=== PATIENT | male | born 1955 | race Caucasian/White ===

== ENCOUNTER → 2017-10-24 11:00 | Outpatient (CLI) | payer OTHER, SELFPAY ==
[2017-10-24 11:58] LABS: Add Manual Diff / Slide Review NO; Basophils Percent Auto 0.5 % (0-2); Eosinophils Percent Auto 3.7 % (2-4); Hematocrit 40.9 % (41-53); Hemoglobin 12.7 g/dL (13.5-17.5); Lymphocytes Percent Auto 18.6 % (25-40); Mean Corpuscular HGB Conc 31.2 % (30-36); Mean Corpuscular Hemoglobin 20.7 PG (26-34); Mean Corpuscular Volume 66.4 fL (80-100); Monocytes Percent Auto 7.7 % (3-14); Neutrophils Absolute Auto 4000 /uL (3000-5900); Neutrophils Percent Auto 69.5 % (50-75); Platelet Count 158 X10^3/uL (150-400); Red Blood Cell Count 6.16 X10^6/uL (4.5-5.9); Red Cell Distribution Width 20.8 % (11.6-14.8); White Blood Cell Count 5.7 X10^3/uL (4.5-11.0)
[2017-10-24 12:51] LABS: Alanine Aminotransferase 40 IU/L (21-72); Albumin 4.4 g/dL (3.5-5.0); Albumin Globulin Ratio 1.8 (1.0-2.8); Alkaline Phosphatase 48 U/L (38-126); Aspartate Aminotransferase 30 IU/L (17-59); BUN Creatinine Ratio 21.7 (6-22); Bilirubin Total 1.2 mg/dL (0.2-1.3); Blood Urea Nitrogen 26 mg/dL (9-20); Calcium 9.1 mg/dL (8.4-10.2); Carbon Dioxide 25 mmol/L (22-32); Chloride 106 mmol/L (98-107); Creatine Kinase 59 U/L (55-170); Estimated Glomerular Filt Rate > 60.0 mL/min (>60); Globulin 2.5 g/dL (1.7-4.1); Glucose 118 mg/dL (80-110); HEMOLYSIS < 15 (0-50); Magnesium 1.8 mg/dL (1.6-2.3); Sodium 141 mmol/L (137-145); Total Protein 6.9 g/dL (6.3-8.2)
[2017-10-24 13:27] LABS: Anisocytosis 2+; Microcytosis 2+
[2017-10-24 13:28] LABS: Stomatocytes 1+; Target Cells 1+
[2017-10-24 13:29] LABS: Polychromasia 1+
== END ==
PROVIDERS: PCP Internal Medicine; Visit Provider Internal Medicine Advanced Heart Failure and Transplant Cardiology
DX: Z94.1 Heart transplant status (principal)
CPT/HCPCS: 36415; 80053; 82550; 83735; 85025

== ENCOUNTER 2019-03-03 16:12 | Emergency (ER) | payer OTHER, MEDICAID, SELFPAY ==
[2019-03-03 16:19] VITALS: BP 132/84; PULSE 82; RESP 12; TEMP 36.8; O2SAT 100
--- NOTE | 2019-03-03 16:25 | PC.NURSE ---
pt arrived POV. ambulatory. reports that he was moving a TV out of an odd angled area and heard a pop in his R bicep area. pronation of the R arm and palpation of the brachial area induces pain. +2 pulses. adequate sensation. 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 AAOx3. h/o heart transplant 4 yrs ago
--- NOTE | 2019-03-03 16:25 | ED.UPPEXIN ---
HPI - Extremity Injury (Upper) General Chief Complaint: Extremity Injury, Upper Stated Complaint: right arm pain, thinks he broke something Time Seen by Provider: 03/03/19 16:17 Source: patient Mode of arrival: Ambulatory Limitations: no limitations History of Present Illness HPI narrative: 63-year-old male here for evaluation of her right arm injury. He states that just prior to arrival he had his arm in a flexed position with his palm up trying to pull a heavy TV out of a confined space. He states that he felt a ?pop? and that right elbow area. Has had pain in that area since then. Some weakness with flexing his arm. No prior injuries to this area. Related Data Allergies Allergy/AdvReac Type Severity Reaction Status Date / Time No Known Drug Allergies Allergy Verified 03/03/19 16:21 Review of Systems Constitutional Constitutional: Denies fever(s) Cardiovascular Cardiovascular: Denies chest pain and Denies dyspnea Respiratory Respiratory: Denies dyspnea Musculoskeletal Musculoskeletal: Denies tingling Comments: Right elbow pain Integumentary/Breasts Skin/Breast: Denies lesions and Denies rash Neurologic Neurologic: Denies tingling Hematologic/Lymphatic Hematologic/Lymphatic: Denies easy bleeding and Denies easy bruising Patient History Medical/Surgical History Medical History Heart transplant recipient (Acute) Social History Smoking Status: Never smoker Family/Social History Social History Smoking Status: Never smoker alcohol intake frequency: 0-2 drinks per day Substance Use Type: does not use Exam Initial Vital Signs Initial Vital Signs: Vital Signs Temperature 98.3 F 03/03/19 16:19 Pulse Rate 82 03/03/19 16:19 Respiratory Rate 12 03/03/19 16:19 Blood Pressure 132/84 03/03/19 16:19 Pulse Oximetry 100 03/03/19 16:19 Const General: cooperative, healthy appearing and comfortable Cardio Rate: regular rate Rhythm: regular rhythm Pulses: radial pulses present on the right Skin Lesions: no lesions Rashes: no rashes Neuro Sensory Exam: no sensory deficits noted Extrem Other: Right shoulder is unremarkable, right wrist is unremarkable, right hand is unremarkable, patient does have pain with flexing of the right arm. He has a deficit felt at the distal biceps region. He is still able to flex his arm. Still able to pronate and supinate but does have some pain with supination. Triceps is unremarkable. Psych Appearance: grossly normal and well kempt Course Orders Ordered: ED Orders 03/03/19 16:24 XR humerus RT 2V Stat Vital Signs Vital signs: Vital Signs - 8 hr 03/03/19 16:19 Temperature 98.3 F Pulse Rate 82 Respiratory Rate 12 Blood Pressure 132/84 Pulse Oximetry 100 [facility] - Extremity Injury (Upper) Imaging Data Humerus x-ray: Radiologist's impression: [address] [address] XRay Report Signed Patient: Dann Hernandez CMR#: [id number] : 5Acct:[id number] Age/Sex: 63 / MDate of Service: 03/03/19 Loc: ED Accession Number: [id number] Procedure: XR humerus RT 2V Ordering Provider: Jair Longoria D.O. PROCEDURE: XR HUMERUS RT 2V INDICATIONS: Biceps tendon rupture distal TECHNIQUE: 2 views of the humerus were acquired. COMPARISON: None. FINDINGS: Bones: At the expected location of the biceps tendon insertion, there is a small avulsion fracture seen. No additional fractures are detected. No suspicious lytic or blastic lesions are seen. Soft tissues: No suspicious soft tissue calcifications. IMPRESSION: Apparent small avulsion fracture seen at the site of the expected biceps tendon insertion. If it would be helpful for clinical management decision making, please consider a dedicated MRI for further evaluation (assuming that there is no contraindication). Dictated by: Gregory Jarrett M.D. on 03/03/2019 at 15:41 Approved by: Gregory Jarrett M.D. on 03/03/2019 at 15:42 [facility] Narrative Medical decision making narrative: Patient is neurovascularly intact. His physical exam is consistent with a biceps injury potentially a biceps tendon versus a muscle tear. His x-ray does have a very small avulsion fracture from the area with a would expect the biceps tendon to insert. I did discuss the case with Dr. Roberson with Orthopedics who will be expecting his call tomorrow for follow-up. Given his cardiac history he will require clearance is before any surgical intervention. Patient was given a sling for comfort. He is given return precautions and follow-up instructions. Expressed understanding and agreement with plan. Discharge Plan Departure Patient Disposition: Home Clinical Impression: Biceps tendon rupture Qualifiers: Encounter type: initial encounter Laterality: right Qualified Code(s): S46.211A - Strain of muscle, fascia and tendon of other parts of biceps, right arm, initial encounter Activity Restrictions/Additional Instructions: Given your history and physical today I do have a strong suspicion that you have ruptured your biceps tendon on the right. The sling is for your comfort. I did discuss your case with Dr. Roberson who was on for Orthopedics today. She is expecting your call at the beginning of this week. You can call the [facility] at [phone]. Also contact your primary provider is you will most likely require specific clearance before any potential surgery. Referrals: Brent Abrams MD [Primary Care Provider] -
== END 2019-03-03 17:43 | disposition home or self-care (01) ==
PROVIDERS: Emergency Provider Emergency Medicine; PCP Internal Medicine
DX: S46.211A Strain of muscle, fascia and tendon of other parts of biceps, right arm, initial encounter (principal)
CPT/HCPCS: 73060; 99282; 99283

== ENCOUNTER → 2019-03-08 15:49 | Outpatient (CLI) | payer OTHER, MEDICAID, SELFPAY ==
[2019-03-08 16:12] LABS: Add Manual Diff / Slide Review NO; Basophils Absolute Auto 0 /uL (0-100); Basophils Percent Auto 0.2 % (0-2); Eosinophils Absolute Auto 100 /uL (0-450); Hematocrit 42.6 % (41-53); Hemoglobin 13.2 g/dL (13.5-17.5); Lymphocytes Absolute Auto 1100 /uL (1100-4500); Lymphocytes Percent Auto 12.3 % (25-40); Mean Corpuscular HGB Conc 31.1 % (30-36); Mean Corpuscular Hemoglobin 20.6 PG (26-34); Mean Corpuscular Volume 66.1 fL (80-100); Monocytes Absolute Auto 500 /uL (0-900); Monocytes Percent Auto 5.4 % (3-14); Neutrophils Absolute Auto 7400 /uL (1500-7000); Neutrophils Percent Auto 81.1 % (50-75); Platelet Count 198 X10^3/uL (150-400); Red Blood Cell Count 6.44 X10^6/uL (4.5-5.9); Red Cell Distribution Width 19.7 % (11.6-14.8); White Blood Cell Count 9.2 X10^3/uL (4.5-11.0)
[2019-03-08 16:33] LABS: Polychromasia 3+
[2019-03-08 16:34] LABS: Microcytosis 1+
[2019-03-08 16:43] LABS: Alanine Aminotransferase 31 IU/L (21-72); Albumin 4.6 g/dL (3.5-5.0); Albumin Globulin Ratio 1.8 (1.0-2.8); Alkaline Phosphatase 67 U/L (38-126); Aspartate Aminotransferase 28 IU/L (17-59); Bilirubin Total 1.1 mg/dL (0.2-1.3); Blood Urea Nitrogen 30 mg/dL (9-20); Calcium 9.7 mg/dL (8.4-10.2); Carbon Dioxide 26 mmol/L (22-32); Chloride 103 mmol/L (98-107); Estimated Glomerular Filt Rate > 60.0 mL/min (>60); Globulin 2.5 g/dL (1.7-4.1); Glucose 102 mg/dL (80-110); HEMOLYSIS < 15 (0-50); Potassium 4.9 mmol/L (3.4-5.1); Sodium 139 mmol/L (137-145); Total Protein 7.1 g/dL (6.3-8.2)
== END ==
PROVIDERS: Family Provider Internal Medicine; PCP Internal Medicine; Visit Provider Orthopaedic Surgery
DX: Z01.818 Encounter for other preprocedural examination (principal); Z01.812 Encounter for preprocedural laboratory examination; N39.9 Disorder of urinary system, unspecified; Z13.1 Encounter for screening for diabetes mellitus; R73.9 Hyperglycemia, unspecified
CPT/HCPCS: 36415; 80053; 85025; 93005

== ENCOUNTER → 2019-03-12 16:53 | Outpatient (CLI) | payer OTHER, MEDICAID, SELFPAY ==
--- NOTE | 2019-03-12 16:58 | DI.MRI.S_ITS ---
PROCEDURE: MR ELBOW RT WO CON INDICATIONS: Right elbow, bicep pain post lifting injury TECHNIQUE: Noncontrast coronal proton density fast spin echo and T2 fast spin echo with fat saturation, axial and sagittal T1 spin echo and T2 fast spin echo with fat saturation through the elbow. COMPARISON: None. FINDINGS: Image quality: Excellent. Lateral structures: The lateral ulnar collateral ligament and radial collateral ligament both appear intact. The overlying common extensor tendon also appears normal. Medial structures: The ulnar collateral ligament appears thickened with heterogeneous intrasubstance signal near its proximal insertion. The overlying common flexor tendon also appears thickened with mildly heterogeneous fluid signal suggestive of tendinosis and low-grade partial-thickness tear. The The ulnar nerve appears normal in size and signal within the cubital tunnel. Anterior structures: There is full-thickness rupture of distal biceps tendon at its proximal radial insertion with approximately 5 cm proximal retraction of torn tendon fibers with moderate amount of fluid surrounding torn distal biceps tendon. There is disruption of lacertus fibrosis. The brachialis appears intact as it insert onto the proximal ulna. No bicipitoradial bursal fluid. The median and radial neurovascular bundles appear normal; no focal muscle atrophy to suggest nerve impingement. Posterior structures: The conjoint triceps tendon from the long and lateral heads appears intact. The medial head of the triceps tendon also appears normal, with direct muscle insertion onto the olecranon. No olecranon bursal fluid. Bone and cartilage: No bone marrow contusions or fractures. No osteochondral injuries. IMPRESSION: 1. Full-thickness rupture of distal biceps tendon at its radial insertion with approximately 5 cm proximal retraction of torn tendon fibers and moderate amount of fluid surrounding distal biceps tendon. 2. Tendinosis and low-grade partial-thickness tear involving the common extensor tendon origin. Low-grade sprain involving proximal lateral collateral ligament. 3. No marrow edema. No fracture or dislocation. Dictated by: Fabricio Pitts M.D. on 03/13/2019 at 10:18 Approved by: Fabricio Pitts M.D. on 03/13/2019 at 10:24
== END ==
PROVIDERS: Family Provider Internal Medicine; PCP Internal Medicine; Visit Provider Orthopaedic Surgery
DX: S46.211A Strain of muscle, fascia and tendon of other parts of biceps, right arm, initial encounter (principal); M79.18 Myalgia, other site; X50.9XXA Other and unspecified overexertion or strenuous movements or postures, initial encounter
CPT/HCPCS: 73221

== ENCOUNTER 2019-03-15 13:21 | Day surgery (SDC) | payer OTHER, MEDICAID, SELFPAY ==
[2019-03-13 14:56] VITALS: BMI 35.4
[2019-03-15] VITALS (9 sets, daily range): BP systolic 126–147; BP diastolic 88–102; PULSE 75–87; RESP 14–21; TEMP 36.2–36.5; O2SAT 93–97; BMI 34.7
[2019-03-15] MEDS: LACTATED RINGERS 1,000 ML 42 ML IV (14:02)
--- NOTE | 2019-03-15 15:54 | PM.PREOP ---
Pre-operative Note Interval Note History & Physical reviewed/Exam performed by Physician: Yes Changes to H&P: No
--- NOTE | 2019-03-15 15:56 | P.OP_ITS ---
Operative Date/Time/Diagnoses Date of procedure: 03/15/19 Time of procedure: 16:10 Pre-op diagnosis: Right distal biceps rupture Post-op diagnosis: same Procedure & Clinicians Procedure: Right distal biceps repair Same procedure as scheduled: Yes Indications: This is a 63-year-old gentleman with a history of a heart transplant who is intermittently had to take steroids who had a TV fall and caught it noted the acute onset of severe right elbow pain deformity and elbow weakness. MRI scan confirmed a right distal biceps rupture. He is brought the operating room for repair as needed. Surgeon: Clau Roberson Polishing Pad Mounter: Bruce Swift Anesthesia Type: General and Peripheral nerve block Operative Notes Findings: Complete rupture of the distal biceps, adequate repair Closure Type: primary Specimen(s): none sent Prosthetic devices, grafts, tissues, transplants, or devices: [employer] endo- button Estimated Blood Loss (mL): 100 Blood products transfused: none Tourniquet time (min): 125 Procedure in detail: Patient was brought to the operating room. Time-out was performed. Patient was given preoperative antibiotics. He underwent the induction of a regional anesthesia. He was prepped and draped in standard sterile fashion with his right upper extremity. I applied a high arm tourniquet which was elevated for about 2 hours. Transverse incision was made distal to the antecubital crease by about 3-4 cm. Dissection was carried out through skin and subcutaneous tissues. The proximal extent of the biceps and the biceps tendon had retracted significantly proximally and was not identifiable until I extended the incision with lateral extension proximally. Dissection was then carried down in biceps tendon was carefully identified and meticulously mobilized. Attention was then directed to distally we I-dissected along the track working for the bicipital tuberosity. He had a very deep arm. We meticulously dissected down to bone and identified the radial tuberosity. There was no significant residual stump left on the radial tuberosity. There was some overlying soft tissue. Used a combination of multiple [place] and [employer] these to make sure that I had carefully identified the bicipital tuberosity in use rotation pronation and supination of the arm as well as some flexion to allow mobilization of the skin. Had a very deep forearm. Once the bicipital tuberosity had been definitively identified I dissected the soft tissue off of the bicipital tuberosity and then placed retractors around the bicipital tuberosity placed a K-wire bicortically through the tuberosity. An 8 mm Reamer was then used to ream unicortical a 1 cm. X-ray confirmed bicortical position of the K-wire. A whipstitch was then placed through the biceps tendon and was meticulously placed to the biceps tendon. I additionally our scope to the distal aspect of the biceps tendon to make it more bullet-shaped in order to allow its adequate fit into the tunnel. The sutures were woven through the Endobutton Endobutton was was then passed through the radius it flipped without difficulty. The sutures were then sequentially tightened down through the tunnel as the tendon was fed into the tunnel on the radial tuberosity. One of the sutures was then passed through the biceps tendon as it was exiting the tunnel and once again carefully tied. I attempted to place a additional supportive screw in the tunnel on but it really did not get an adequate polishing pad mounter there was clearly tendon in the tunnel but the screw did not get a bite and I decided that it likely would work its way out with repetitive motion and that it was not necessary for supplemental fixation. The sutures were also additionally sewn to the periosteum of the bicipital tuberosity. The wound was meticulously irrigated with normal saline. Marcaine was carefully injected. Tourniquet was deflated there was no significant bleeding. The wound was closed with interrupted Vicryl and skin yvonne. The wound was dressed sterilely. He was placed in a brace. The brace was locked a range of motion of 60-90. Complications: none Post-operative Condition: stable Disposition: same day surgery Plan for aftercare: Use brace to avoid excessive elbow motion okay to begin gentle pronation and supination no active or forceful elbow flexion. Start physical therapy, okay to rate do range of motion of 60? to full passive flexion. Keep brace on except when exercising with therapy.
[2019-03-15] MEDS: CEFAZOLIN 2 GM/100 ML FROZ.PIGGY IV (16:15)
--- NOTE | 2019-03-15 16:15 | SUR.PREOP ---
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 present in the room. See VS strips and rhythm strip taped to chart. Pt was dozing/snoring through most of the procedure. Aroused near the end of the procedure, oriented and asking appropriate questions. RN standby until take to the OR. VSS. States that his hand is beginning to get numb. Procedure started approx 1549, end 1604.
--- NOTE | 2019-03-15 16:47 | SUR.OPER ---
Supine on padded OR bed, head on pillow, right arm on arm table under control of surgeon, left arm secured on padded arm boards at <90 degrees abduction, legs uncrossed, safety belt at thigh, tape over blanket over lower legs.
[2019-03-15] MEDS: BUPIVACAINE 0.5% (PF) VIAL 30 ML INJ (16:54)
--- NOTE | 2019-03-15 19:40 | SUR.PHASEI ---
Post op PACU note: Patient arrive to PACU via stretcher. Drowsy but easily arousable. VSS, O2 Sat WNL on 2L/TELE TECH. Right arm in post op elbow brace. Neuro check--right arm block. Denies any pain or discomfort. Continue with post op plan of care.
--- NOTE | 2019-03-15 21:05 | SUR.PHASEII ---
Discharge note: PA repositioned right arm brace prior to discharge to home. Neuro checks WNL, Pain level 2/10 achy. Right arm still numb and heavy per patient. VSS, Discharge instructions given and explained to patient and spouse with good understanding. tolerating po without nausea. discharged to car via w/c.
== END 2019-03-15 20:37 ==
LOC: OR 13:25
PROVIDERS: Family Provider Internal Medicine; PCP Internal Medicine; Visit Provider Orthopaedic Surgery
PROC: (CPT 24341; principal; 2019-03-15 15:00)
DX: S46.211A Strain of muscle, fascia and tendon of other parts of biceps, right arm, initial encounter (principal); G89.18 Other acute postprocedural pain; Z94.1 Heart transplant status; W01.0XXA Fall on same level from slipping, tripping and stumbling without subsequent striking against object, initial encounter
CPT/HCPCS: 24342; 64447; 64450; J0690; J2704; J3010

== ENCOUNTER → 2019-04-01 16:16 | Outpatient (CLI) | payer OTHER, MEDICAID, SELFPAY ==
[2019-04-01 17:55] LABS: BUN Creatinine Ratio 24.2 (6-22); Blood Urea Nitrogen 29 mg/dL (9-20); Calcium 9.3 mg/dL (8.4-10.2); Carbon Dioxide 25 mmol/L (22-32); Chloride 106 mmol/L (98-107); Estimated Glomerular Filt Rate > 60.0 mL/min (>60); Glucose 94 mg/dL (80-110); HEMOLYSIS < 15 (0-50); Potassium 4.8 mmol/L (3.4-5.1); Sodium 138 mmol/L (137-145); Uric Acid 6.5 mg/dL (3.5-8.5)
== END ==
PROVIDERS: PCP Internal Medicine; Visit Provider Internal Medicine
DX: E79.0 Hyperuricemia without signs of inflammatory arthritis and tophaceous disease (principal); M1A.27 Drug-induced chronic gout, ankle and foot
CPT/HCPCS: 36415; 80048; 84550

== ENCOUNTER → 2019-07-02 10:37 | Outpatient (CLI) | payer MEDICARE, OTHER, SELFPAY ==
[2019-07-02 11:17] LABS: Add Manual Diff / Slide Review NO; Basophils Absolute Auto 0 /uL (0-100); Basophils Percent Auto 0.7 % (0-2); Eosinophils Absolute Auto 400 /uL (0-450); Eosinophils Percent Auto 6.4 % (2-4); Hematocrit 43.5 % (41-53); Hemoglobin 13.5 g/dL (13.5-17.5); Lymphocytes Absolute Auto 1200 /uL (1100-4500); Lymphocytes Percent Auto 21.9 % (25-40); Mean Corpuscular HGB Conc 31.1 % (30-36); Mean Corpuscular Hemoglobin 20.1 PG (26-34); Mean Corpuscular Volume 64.7 fL (80-100); Monocytes Absolute Auto 300 /uL (0-900); Monocytes Percent Auto 6.2 % (3-14); Neutrophils Absolute Auto 3500 /uL (1500-7000); Neutrophils Percent Auto 64.8 % (50-75); Platelet Count 148 X10^3/uL (150-400); Red Blood Cell Count 6.72 X10^6/uL (4.5-5.9); Red Cell Distribution Width 18.8 % (11.6-14.8); White Blood Cell Count 5.5 X10^3/uL (4.5-11.0)
[2019-07-02 11:33] LABS: Anisocytosis 2+; Poikilocytosis 1+; Target Cells 1+; Tear Drop Cells 1+
[2019-07-02 11:35] LABS: Alanine Aminotransferase 42 IU/L (<50); Albumin 4.7 g/dL (3.5-5.0); Albumin Globulin Ratio 1.6 (1.0-2.8); Alkaline Phosphatase 62 U/L (38-126); Aspartate Aminotransferase 44 IU/L (17-59); BUN Creatinine Ratio 20.7 (6-22); Bilirubin Total 1.2 mg/dL (0.2-1.3); Blood Urea Nitrogen 31 mg/dL (9-20); Carbon Dioxide 30 mmol/L (22-32); Chloride 105 mmol/L (98-107); Cholesterol 184 mg/dL (140-199); Creatine Kinase 58 U/L (55-170); Glucose 109 mg/dL (80-110); HDL Cholesterol 41 mg/dL (40-60); HEMOLYSIS < 15 (0-50); LDL Cholesterol Calculated 120 mg/dL (<100); Magnesium 1.9 mg/dL (1.6-2.3); Potassium 5.3 mmol/L (3.4-5.1); Sodium 145 mmol/L (137-145); Total Protein 7.7 g/dL (6.3-8.2); Triglycerides 115 mg/dL (35-150)
== END ==
PROVIDERS: PCP Internal Medicine; Referring Provider Internal Medicine Advanced Heart Failure and Transplant Cardiology; Visit Provider Internal Medicine Advanced Heart Failure and Transplant Cardiology
DX: Z94.1 Heart transplant status (principal)
CPT/HCPCS: 80053; 80061; 80197; 82550; 83735; 85025

== ENCOUNTER → 2019-07-10 08:38 | Outpatient (CLI) | payer MEDICARE, OTHER, SELFPAY ==
[2019-07-10 11:01] LABS: Add Manual Diff / Slide Review NO; Basophils Absolute Auto 0 /uL (0-100); Basophils Percent Auto 0.8 % (0-2); Eosinophils Absolute Auto 300 /uL (0-450); Eosinophils Percent Auto 6.2 % (2-4); Hematocrit 43.2 % (41-53); Hemoglobin 13.5 g/dL (13.5-17.5); Lymphocytes Absolute Auto 1400 /uL (1100-4500); Lymphocytes Percent Auto 26.6 % (25-40); Mean Corpuscular HGB Conc 31.2 % (30-36); Mean Corpuscular Hemoglobin 20.1 PG (26-34); Mean Corpuscular Volume 64.5 fL (80-100); Monocytes Absolute Auto 400 /uL (0-900); Monocytes Percent Auto 7.9 % (3-14); Neutrophils Absolute Auto 3100 /uL (1500-7000); Neutrophils Percent Auto 58.5 % (50-75); Platelet Count 132 X10^3/uL (150-400); Red Cell Distribution Width 19.5 % (11.6-14.8); White Blood Cell Count 5.4 X10^3/uL (4.5-11.0)
[2019-07-10 11:21] LABS: Anisocytosis 2+; Poikilocytosis 2+
[2019-07-10 11:22] LABS: BUN Creatinine Ratio 26.2 (6-22); Blood Urea Nitrogen 34 mg/dL (9-20); Calcium 9.4 mg/dL (8.4-10.2); Carbon Dioxide 24 mmol/L (22-32); Chloride 106 mmol/L (98-107); Estimated Glomerular Filt Rate 55.4 mL/min (>60); Glucose 102 mg/dL (80-110); HEMOLYSIS < 15 (0-50); Potassium 4.7 mmol/L (3.4-5.1); Sodium 140 mmol/L (137-145)
== END ==
PROVIDERS: PCP Internal Medicine; Referring Provider Internal Medicine Advanced Heart Failure and Transplant Cardiology; Visit Provider Internal Medicine Advanced Heart Failure and Transplant Cardiology
DX: Z94.1 Heart transplant status (principal)
CPT/HCPCS: 36415; 80048; 80195; 80197; 85025

== ENCOUNTER → 2019-07-23 08:39 | Outpatient (CLI) | payer MEDICARE, OTHER, SELFPAY ==
[2019-07-23 09:40] LABS: BUN Creatinine Ratio 23.3 (6-22); Blood Urea Nitrogen 28 mg/dL (9-20); Calcium 9.5 mg/dL (8.4-10.2); Carbon Dioxide 22 mmol/L (22-32); Chloride 106 mmol/L (98-107); Estimated Glomerular Filt Rate > 60.0 mL/min (>60); Glucose 111 mg/dL (80-110); HEMOLYSIS < 15 (0-50); Potassium 4.5 mmol/L (3.4-5.1); Sodium 140 mmol/L (137-145)
[2019-07-23 09:52] LABS: Add Manual Diff / Slide Review NO; Basophils Absolute Auto 100 /uL (0-100); Basophils Percent Auto 1.2 % (0-2); Eosinophils Absolute Auto 300 /uL (0-450); Eosinophils Percent Auto 4.7 % (2-4); Hematocrit 42.9 % (41-53); Lymphocytes Absolute Auto 1700 /uL (1100-4500); Lymphocytes Percent Auto 27.9 % (25-40); Mean Corpuscular HGB Conc 31.9 % (30-36); Mean Corpuscular Hemoglobin 20.4 PG (26-34); Monocytes Absolute Auto 400 /uL (0-900); Monocytes Percent Auto 6.8 % (3-14); Neutrophils Absolute Auto 3600 /uL (1500-7000); Neutrophils Percent Auto 59.4 % (50-75); Platelet Count 161 X10^3/uL (150-400); Red Cell Distribution Width 20.1 % (11.6-14.8)
[2019-07-23 09:53] LABS: Hemoglobin 13.7 g/dL (13.5-17.5); Red Blood Cell Count 6.71 X10^6/uL (4.5-5.9)
[2019-07-23 10:16] LABS: Microcytosis 1+
[2019-07-23 10:17] LABS: Anisocytosis 2+; Hypochromasia 2+
== END ==
PROVIDERS: PCP Internal Medicine; Referring Provider Internal Medicine Advanced Heart Failure and Transplant Cardiology; Visit Provider Internal Medicine Advanced Heart Failure and Transplant Cardiology
DX: Z94.1 Heart transplant status (principal)
CPT/HCPCS: 36415; 80048; 80195; 80197; 85025

== ENCOUNTER → 2019-07-30 08:34 | Outpatient (CLI) | payer MEDICARE, OTHER, SELFPAY ==
[2019-07-30 10:35] LABS: BUN Creatinine Ratio 21.6 (6-22); Blood Urea Nitrogen 27 mg/dL (9-20); Calcium 9.5 mg/dL (8.4-10.2); Carbon Dioxide 25 mmol/L (22-32); Chloride 106 mmol/L (98-107); Glucose 112 mg/dL (80-110); HEMOLYSIS < 15 (0-50); Potassium 4.7 mmol/L (3.4-5.1); Sodium 140 mmol/L (137-145)
== END ==
PROVIDERS: PCP Internal Medicine; Referring Provider Internal Medicine Advanced Heart Failure and Transplant Cardiology; Visit Provider Internal Medicine Advanced Heart Failure and Transplant Cardiology
DX: Z94.1 Heart transplant status (principal)
CPT/HCPCS: 36415; 80048; 80195; 80197

== ENCOUNTER → 2019-08-13 08:36 | Outpatient (CLI) | payer MEDICARE, OTHER, SELFPAY ==
[2019-08-13 09:52] LABS: BUN Creatinine Ratio 19.2 (6-22); Blood Urea Nitrogen 25 mg/dL (9-20); Calcium 9.5 mg/dL (8.4-10.2); Carbon Dioxide 26 mmol/L (22-32); Chloride 104 mmol/L (98-107); Estimated Glomerular Filt Rate 55.4 mL/min (>60); Glucose 127 mg/dL (80-110); HEMOLYSIS < 15 (0-50); Potassium 4.7 mmol/L (3.4-5.1); Sodium 137 mmol/L (137-145)
== END ==
PROVIDERS: PCP Internal Medicine; Referring Provider Internal Medicine Advanced Heart Failure and Transplant Cardiology; Visit Provider Internal Medicine Advanced Heart Failure and Transplant Cardiology
DX: Z94.1 Heart transplant status (principal)
CPT/HCPCS: 36415; 80048; 80195; 80197

== ENCOUNTER → 2019-11-22 09:23 | Outpatient (CLI) | payer MEDICARE, OTHER, SELFPAY ==
[2019-11-22 13:29] LABS: BUN Creatinine Ratio 20.6 (6-22); Blood Urea Nitrogen 26 mg/dL (9-20); Calcium 9.4 mg/dL (8.4-10.2); Carbon Dioxide 25 mmol/L (22-32); Chloride 105 mmol/L (98-107); Estimated Glomerular Filt Rate 57.4 mL/min (>60); Glucose 106 mg/dL (80-110); HEMOLYSIS 17 (0-50); Potassium 4.9 mmol/L (3.4-5.1); Sodium 138 mmol/L (137-145)
== END ==
PROVIDERS: PCP Internal Medicine; Referring Provider Internal Medicine Advanced Heart Failure and Transplant Cardiology; Visit Provider Internal Medicine Advanced Heart Failure and Transplant Cardiology
DX: Z94.1 Heart transplant status (principal)
CPT/HCPCS: 36415; 80048; 80195; 80197

== ENCOUNTER → 2019-12-17 09:37 | Outpatient (CLI) | payer MEDICARE, OTHER, SELFPAY ==
[2019-12-17 10:57] LABS: BUN Creatinine Ratio 18.7 (6-22); Blood Urea Nitrogen 25 mg/dL (9-20); Calcium 9.4 mg/dL (8.4-10.2); Carbon Dioxide 26 mmol/L (22-32); Chloride 106 mmol/L (98-107); Estimated Glomerular Filt Rate 53.5 mL/min (>60); Glucose 124 mg/dL (80-110); HEMOLYSIS < 15 (0-50); Potassium 4.6 mmol/L (3.4-5.1); Sodium 139 mmol/L (137-145)
[2020-01-21 11:49] LABS: Miscellaneous to LabCorp 3.1 ng/ml
== END ==
PROVIDERS: PCP Internal Medicine; Referring Provider Internal Medicine Advanced Heart Failure and Transplant Cardiology; Visit Provider Internal Medicine Advanced Heart Failure and Transplant Cardiology
DX: Z94.1 Heart transplant status (principal)
CPT/HCPCS: 36415; 80048; 80195; 80197

== ENCOUNTER → 2020-01-14 08:29 | Outpatient (CLI) | payer MEDICARE, OTHER, SELFPAY ==
[2020-01-14 10:24] LABS: BUN Creatinine Ratio 21.1 (6-22); Blood Urea Nitrogen 28 mg/dL (9-20); Calcium 9.3 mg/dL (8.4-10.2); Carbon Dioxide 31 mmol/L (22-32); Chloride 104 mmol/L (98-107); Glucose 144 mg/dL (80-110); HEMOLYSIS < 15 (0-50); Potassium 5.1 mmol/L (3.4-5.1); Sodium 139 mmol/L (137-145)
== END ==
PROVIDERS: PCP Internal Medicine; Referring Provider Internal Medicine Advanced Heart Failure and Transplant Cardiology; Visit Provider Internal Medicine Advanced Heart Failure and Transplant Cardiology
DX: Z94.1 Heart transplant status (principal)
CPT/HCPCS: 36415; 80048; 80195; 80197

== ENCOUNTER → 2020-06-30 10:07 | Outpatient (CLI) | payer MEDICARE, OTHER, SELFPAY ==
[2020-06-30 11:32] LABS: Add Manual Diff / Slide Review NO; Basophils Absolute Auto 100 /uL (0-100); Basophils Percent Auto 0.8 % (0-2); Eosinophils Absolute Auto 200 /uL (0-450); Eosinophils Percent Auto 2.4 % (2-4); Hematocrit 44.1 % (41-53); Hemoglobin 13.6 g/dL (13.5-17.5); Lymphocytes Absolute Auto 1300 /uL (1100-4500); Lymphocytes Percent Auto 18.9 % (25-40); Mean Corpuscular HGB Conc 30.8 % (30-36); Mean Corpuscular Hemoglobin 19.3 PG (26-34); Mean Corpuscular Volume 62.7 fL (80-100); Monocytes Absolute Auto 500 /uL (0-900); Monocytes Percent Auto 7.6 % (3-14); Neutrophils Absolute Auto 4700 /uL (1500-7000); Neutrophils Percent Auto 70.3 % (50-75); Platelet Count 133 X10^3/uL (150-400); Red Cell Distribution Width 19.9 % (11.6-14.8); White Blood Cell Count 6.6 X10^3/uL (4.5-11.0)
[2020-06-30 11:33] LABS: Red Blood Cell Count 7.03 X10^6/uL (4.5-5.9)
[2020-06-30 11:51] LABS: Anisocytosis 2+
[2020-06-30 12:15] LABS: Alanine Aminotransferase 47 IU/L (<50); Albumin 4.1 g/dL (3.5-5.0); Albumin Globulin Ratio 1.5 (1.0-2.8); Alkaline Phosphatase 92 U/L (38-126); Aspartate Aminotransferase 44 IU/L (17-59); BUN Creatinine Ratio 20.1 (6-22); Bilirubin Total 0.5 mg/dL (0.2-1.3); Blood Urea Nitrogen 28 mg/dL (9-20); Calcium 9.2 mg/dL (8.4-10.2); Carbon Dioxide 29 mmol/L (22-32); Chloride 105 mmol/L (98-107); Estimated Glomerular Filt Rate 51.1 mL/min (>60); Globulin 2.8 g/dL (1.7-4.1); Glucose 118 mg/dL (80-110); HEMOLYSIS < 15 (0-50); Magnesium 1.7 mg/dL (1.6-2.3); Potassium 4.7 mmol/L (3.4-5.1); Sodium 139 mmol/L (137-145); Total Protein 6.9 g/dL (6.3-8.2)
[2020-07-01 08:14] LABS: Sirolimus 6.9 ng/mL (3.0-20.0)
== END ==
PROVIDERS: PCP Internal Medicine; Referring Provider Internal Medicine Advanced Heart Failure and Transplant Cardiology; Visit Provider Internal Medicine Advanced Heart Failure and Transplant Cardiology
DX: Z94.1 Heart transplant status (principal)
CPT/HCPCS: 36415; 80053; 80195; 80197; 83735; 85025

== ENCOUNTER → 2021-03-10 08:11 | Outpatient (CLI) | payer MEDICARE, OTHER, SELFPAY ==
[2021-03-10 09:46] LABS: BUN Creatinine Ratio 20.7 (6-22); Blood Urea Nitrogen 29 mg/dL (9-20); Calcium 9.4 mg/dL (8.4-10.2); Carbon Dioxide 24 mmol/L (22-32); Chloride 105 mmol/L (98-107); Estimated Glomerular Filt Rate 50.7 mL/min (>60); Glucose 116 mg/dL (80-110); HEMOLYSIS < 15 (0-50); Potassium 4.7 mmol/L (3.4-5.1); Sodium 139 mmol/L (137-145)
[2021-03-11 08:57] LABS: Tacrolimus 3.6 ng/mL (2.0-20.0)
== END ==
PROVIDERS: PCP Internal Medicine; Referring Provider Internal Medicine Advanced Heart Failure and Transplant Cardiology; Visit Provider Internal Medicine Advanced Heart Failure and Transplant Cardiology
DX: Z94.1 Heart transplant status (principal)
CPT/HCPCS: 36415; 80048; 80195; 80197

== ENCOUNTER → 2021-04-26 08:06 | Outpatient (CLI) | payer MEDICARE, OTHER, SELFPAY ==
[2021-04-26 11:10] LABS: BUN Creatinine Ratio 22.4 (6-22); Blood Urea Nitrogen 32 mg/dL (9-20); Calcium 9.4 mg/dL (8.4-10.2); Carbon Dioxide 29 mmol/L (22-32); Chloride 103 mmol/L (98-107); Estimated Glomerular Filt Rate 49.5 mL/min (>60); Glucose 100 mg/dL (80-110); HEMOLYSIS < 15 (0-50); Potassium 4.6 mmol/L (3.4-5.1); Sodium 140 mmol/L (137-145)
[2021-04-27 09:45] LABS: Sirolimus 7.4 ng/mL (3.0-20.0)
== END ==
PROVIDERS: PCP Internal Medicine; Referring Provider Internal Medicine Advanced Heart Failure and Transplant Cardiology; Visit Provider Internal Medicine Advanced Heart Failure and Transplant Cardiology
DX: Z94.1 Heart transplant status (principal)
CPT/HCPCS: 36415; 80048; 80195; 80197

== ENCOUNTER → 2021-06-08 08:09 | Outpatient (CLI) | payer OTHER, MEDICAID, SELFPAY ==
[2021-06-08 11:18] LABS: BUN Creatinine Ratio 17.5 (6-22); Blood Urea Nitrogen 25 mg/dL (9-20); Calcium 9.2 mg/dL (8.4-10.2); Carbon Dioxide 27 mmol/L (22-32); Chloride 107 mmol/L (98-107); Estimated Glomerular Filt Rate 49.3 mL/min (>60); Glucose 98 mg/dL (80-110); HEMOLYSIS < 15 (0-50); Potassium 4.4 mmol/L (3.4-5.1); Sodium 139 mmol/L (137-145)
[2021-06-09 09:42] LABS: Sirolimus 4.4 ng/mL (3.0-20.0); Tacrolimus 4.1 ng/mL (2.0-20.0)
== END ==
PROVIDERS: PCP Internal Medicine; Referring Provider Internal Medicine Advanced Heart Failure and Transplant Cardiology; Visit Provider Internal Medicine Advanced Heart Failure and Transplant Cardiology
DX: Z94.1 Heart transplant status (principal)
CPT/HCPCS: 36415; 80048; 80195; 80197

== ENCOUNTER → 2021-06-15 08:05 | Outpatient (CLI) | payer OTHER, MEDICAID, SELFPAY ==
[2021-06-15 11:25] LABS: BUN Creatinine Ratio 21.8 (6-22); Blood Urea Nitrogen 29 mg/dL (9-20); Calcium 9.2 mg/dL (8.4-10.2); Carbon Dioxide 28 mmol/L (22-32); Chloride 107 mmol/L (98-107); Estimated Glomerular Filt Rate 53.6 mL/min (>60); Glucose 90 mg/dL (80-110); HEMOLYSIS < 15 (0-50); Potassium 4.5 mmol/L (3.4-5.1); Sodium 139 mmol/L (137-145)
[2021-06-16 10:13] LABS: Sirolimus 4.8 ng/mL (3.0-20.0); Tacrolimus 3.4 ng/mL (2.0-20.0)
== END ==
PROVIDERS: PCP Internal Medicine; Referring Provider Internal Medicine Advanced Heart Failure and Transplant Cardiology; Visit Provider Internal Medicine Advanced Heart Failure and Transplant Cardiology
DX: Z94.1 Heart transplant status (principal)
CPT/HCPCS: 36415; 80048; 80195; 80197

== ENCOUNTER → 2021-07-23 08:11 | Outpatient (CLI) | payer OTHER, MEDICAID, SELFPAY ==
[2021-07-23 09:07] LABS: BUN Creatinine Ratio 21.5 (6-22); Blood Urea Nitrogen 28 mg/dL (9-20); Calcium 8.9 mg/dL (8.4-10.2); Carbon Dioxide 26 mmol/L (22-32); Chloride 107 mmol/L (98-107); Estimated Glomerular Filt Rate 55.1 mL/min (>60); Glucose 104 mg/dL (80-110); HEMOLYSIS < 15 (0-50); Potassium 4.3 mmol/L (3.4-5.1); Sodium 139 mmol/L (137-145)
[2021-07-23 15:35] LABS: Tacrolimus 2.8 ng/mL (2.0-20.0)
[2021-07-24 10:16] LABS: Sirolimus 5.3 ng/mL (3.0-20.0)
== END ==
PROVIDERS: PCP Internal Medicine; Referring Provider Internal Medicine Advanced Heart Failure and Transplant Cardiology; Visit Provider Internal Medicine Advanced Heart Failure and Transplant Cardiology
DX: Z94.1 Heart transplant status (principal)
CPT/HCPCS: 36415; 80048; 80195; 80197

== ENCOUNTER → 2021-12-18 15:37 | Outpatient (CLI) | payer OTHER, MEDICAID, SELFPAY ==
[2021-12-19 14:52] LABS: HSV 2 IGG AB < 0.91 index (0.00-0.90); HSV1IGG > 62.20 index (0.00-0.90)
== END ==
PROVIDERS: PCP Internal Medicine; Referring Provider Nurse Practitioner Family; Visit Provider Nurse Practitioner Family
DX: B00.9 Herpesviral infection, unspecified (principal)
CPT/HCPCS: 36415; 86695; 86696

== ENCOUNTER → 2022-02-04 09:31 | Outpatient (CLI) | payer OTHER, MEDICAID, SELFPAY ==
[2022-02-04 10:44] LABS: Add Manual Diff / Slide Review NO; Basophils Absolute Auto 0 /uL (0-100); Basophils Percent Auto 0.4 % (0-2); Eosinophils Absolute Auto 200 /uL (0-450); Eosinophils Percent Auto 2.9 % (2-4); Hematocrit 37.4 % (41-53); Lymphocytes Absolute Auto 1400 /uL (1100-4500); Lymphocytes Percent Auto 22.8 % (25-40); Mean Corpuscular Hemoglobin 19.6 PG (26-34); Mean Corpuscular Volume 61.1 fL (80-100); Monocytes Absolute Auto 600 /uL (0-900); Monocytes Percent Auto 9.2 % (3-14); Neutrophils Absolute Auto 4100 /uL (1500-7000); Neutrophils Percent Auto 64.7 % (50-75); Platelet Count 144 X10^3/uL (150-400); Red Blood Cell Count 6.13 X10^6/uL (4.5-5.9); White Blood Cell Count 6.4 X10^3/uL (4.5-11.0)
[2022-02-04 11:02] LABS: Anisocytosis 2+; Hypochromasia 2+; Microcytosis 2+; Platelet Estimate Decreased on smear
[2022-02-04 11:35] LABS: Alanine Aminotransferase 28 IU/L (<50); Albumin Globulin Ratio 1.2 (1.0-2.8); Alkaline Phosphatase 70 U/L (38-126); Aspartate Aminotransferase 40 IU/L (17-59); BUN Creatinine Ratio 25.7 (6-22); Bilirubin Total 0.7 mg/dL (0.2-1.3); Blood Urea Nitrogen 38 mg/dL (9-20); Carbon Dioxide 24 mmol/L (22-32); Chloride 103 mmol/L (98-107); Creatine Kinase 73 U/L (55-170); Estimated Glomerular Filt Rate 52 mL/min (>60); Globulin 3.3 g/dL (1.7-4.1); Glucose 104 mg/dL (80-110); HEMOLYSIS 22 (0-50); Potassium 4.2 mmol/L (3.4-5.1); Sodium 139 mmol/L (137-145); Total Protein 7.3 g/dL (6.3-8.2)
[2022-02-05 11:16] LABS: Tacrolimus 3.2 ng/mL (2.0-20.0)
== END ==
PROVIDERS: PCP Internal Medicine; Referring Provider Internal Medicine Advanced Heart Failure and Transplant Cardiology; Visit Provider Internal Medicine Advanced Heart Failure and Transplant Cardiology
DX: Z94.1 Heart transplant status (principal)
CPT/HCPCS: 36415; 80053; 80195; 80197; 82550; 83735; 85025

== ENCOUNTER → 2022-05-09 09:13 | Outpatient (CLI) | payer OTHER, MEDICAID, SELFPAY ==
[2022-05-09 10:19] LABS: Appearance Urine UA CLEAR; Bilirubin Urine UA NEGATIVE (NEGATIVE); Color Urine UA YELLOW; Glucose Urine UA NEGATIVE (Negative); Ketones Urine UA NEGATIVE (NEGATIVE); Leukocyte Esterase Urine UA NEGATIVE (NEGATIVE); Nitrite Urine UA NEGATIVE (Negative); Occult Blood Urine UA 1+ (Negative); Protein Urine UA 3+ (Negative); Specific Gravity Urine UA >=1.030 (1.000-1.035); Urobilinogen Urine UA 0.2 E.U./dL (0.2)
[2022-05-09 10:20] LABS: Amorphous Sediment Urine 1+; Bacteria Urine None Seen; Culture Indicated Urine Cult Not Indicated; RBC Urine 1-5/HPF (0-5/HPF); Squamous Epithelial Cell Urine 1-5 /HPF (0-5/HPF); WBC Urine None Seen (0-5/HPF)
[2022-05-09 10:49] LABS: Add Manual Diff / Slide Review NO; Basophils Absolute Auto 100 /uL (0-100); Basophils Percent Auto 1.2 % (0-2); Eosinophils Absolute Auto 200 /uL (0-450); Hematocrit 39.6 % (41-53); Hemoglobin 12.1 g/dL (13.5-17.5); Lymphocytes Absolute Auto 1400 /uL (1100-4500); Lymphocytes Percent Auto 21.4 % (25-40); Mean Corpuscular HGB Conc 30.6 % (30-36); Mean Corpuscular Hemoglobin 18.7 PG (26-34); Mean Corpuscular Volume 61.2 fL (80-100); Monocytes Absolute Auto 600 /uL (0-900); Monocytes Percent Auto 8.6 % (3-14); Neutrophils Absolute Auto 4200 /uL (1500-7000); Neutrophils Percent Auto 65.8 % (50-75); Platelet Count 146 X10^3/uL (150-400); Red Blood Cell Count 6.47 X10^6/uL (4.5-5.9); Red Cell Distribution Width 21.8 % (11.6-14.8); White Blood Cell Count 6.4 X10^3/uL (4.5-11.0)
[2022-05-09 11:16] LABS: Alanine Aminotransferase 39 IU/L (<50); Albumin Globulin Ratio 1.5 (1.0-2.8); Alkaline Phosphatase 76 U/L (38-126); Aspartate Aminotransferase 33 IU/L (17-59); BUN Creatinine Ratio 17.1 (6-22); Bilirubin Total 0.8 mg/dL (0.2-1.3); Blood Urea Nitrogen 27 mg/dL (9-20); Calcium 8.9 mg/dL (8.4-10.2); Carbon Dioxide 26 mmol/L (22-32); Chloride 106 mmol/L (98-107); Creatine Kinase 69 U/L (55-170); Estimated Glomerular Filt Rate 48 mL/min (>60); Globulin 2.7 g/dL (1.7-4.1); Glucose 93 mg/dL (80-110); HEMOLYSIS < 15 (0-50); Magnesium 1.8 mg/dL (1.6-2.3); Potassium 4.4 mmol/L (3.4-5.1); Sodium 139 mmol/L (137-145); Total Protein 6.7 g/dL (6.3-8.2)
[2022-05-09 11:28] LABS: Anisocytosis 2+; Microcytosis 2+
[2022-05-09 11:29] LABS: Hypochromasia 1+; Target Cells 1+
[2022-05-10 09:47] LABS: Sirolimus 6.1 ng/mL (3.0-20.0); Tacrolimus 3.9 ng/mL (2.0-20.0)
== END ==
PROVIDERS: PCP Internal Medicine; Referring Provider Internal Medicine Advanced Heart Failure and Transplant Cardiology; Visit Provider Internal Medicine Advanced Heart Failure and Transplant Cardiology
DX: Z94.1 Heart transplant status (principal)
CPT/HCPCS: 36415; 80053; 80195; 80197; 81001; 82550; 83735; 85025

== ENCOUNTER → 2022-09-19 11:48 | Outpatient (CLI) | payer OTHER, MEDICAID, SELFPAY ==
[2022-09-19 12:36] LABS: Add Manual Diff / Slide Review NO; Basophils Absolute Auto 100 /uL (0-100); Basophils Percent Auto 1.5 % (0-2); Eosinophils Absolute Auto 100 /uL (0-450); Eosinophils Percent Auto 2.4 % (2-4); Hematocrit 37.4 % (41-53); Lymphocytes Absolute Auto 1300 /uL (1100-4500); Lymphocytes Percent Auto 21.1 % (25-40); Mean Corpuscular HGB Conc 32.1 % (30-36); Mean Corpuscular Volume 59.2 fL (80-100); Monocytes Absolute Auto 400 /uL (0-900); Monocytes Percent Auto 6.4 % (3-14); Neutrophils Absolute Auto 4300 /uL (1500-7000); Neutrophils Percent Auto 68.6 % (50-75); Platelet Count 143 X10^3/uL (150-400); Red Blood Cell Count 6.31 X10^6/uL (4.5-5.9); Red Cell Distribution Width 20.3 % (11.6-14.8); White Blood Cell Count 6.2 X10^3/uL (4.5-11.0)
[2022-09-19 12:52] LABS: BUN Creatinine Ratio 17.9 (6-22); Blood Urea Nitrogen 34 mg/dL (9-20); Calcium 8.8 mg/dL (8.4-10.2); Carbon Dioxide 26 mmol/L (22-32); Chloride 104 mmol/L (98-107); Estimated Glomerular Filt Rate 38 mL/min (>60); Glucose 111 mg/dL (80-110); HEMOLYSIS < 15 (0-50); Potassium 4.1 mmol/L (3.4-5.1); Sodium 139 mmol/L (137-145)
[2022-09-19 13:12] LABS: Microcytosis 3+
[2022-09-19 13:13] LABS: Target Cells 1+
[2022-09-23 13:12] LABS: Tacrolimus 3.8
[2022-09-25 20:02] LABS: Sirolimus 9.1
== END ==
PROVIDERS: PCP Internal Medicine; Referring Provider Internal Medicine Advanced Heart Failure and Transplant Cardiology; Visit Provider Internal Medicine Advanced Heart Failure and Transplant Cardiology
DX: Z94.1 Heart transplant status (principal)
CPT/HCPCS: 36415; 80048; 80195; 80197; 85025

== ENCOUNTER → 2022-10-10 09:20 | Outpatient (CLI) | payer OTHER, MEDICAID, SELFPAY ==
[2022-10-10 10:37] LABS: BUN Creatinine Ratio 20.7 (6-22); Blood Urea Nitrogen 40 mg/dL (9-20); Calcium 8.8 mg/dL (8.4-10.2); Carbon Dioxide 26 mmol/L (22-32); Chloride 103 mmol/L (98-107); Estimated Glomerular Filt Rate 37 mL/min (>60); Glucose 108 mg/dL (80-110); HEMOLYSIS < 15 (0-50); Potassium 4.2 mmol/L (3.4-5.1); Sodium 137 mmol/L (137-145)
[2022-10-13 10:20] LABS: Sirolimus 6.9
[2022-10-17 18:15] LABS: Tacrolimus 4.9
== END ==
PROVIDERS: PCP Internal Medicine; Referring Provider Internal Medicine Advanced Heart Failure and Transplant Cardiology; Visit Provider Internal Medicine Advanced Heart Failure and Transplant Cardiology
DX: Z94.1 Heart transplant status (principal)
CPT/HCPCS: 36415; 80048; 80195; 80197

== ENCOUNTER → 2023-02-04 11:26 | Outpatient (CLI) | payer OTHER, MEDICAID, SELFPAY ==
[2023-02-04 12:21] LABS: BUN Creatinine Ratio 21.7 (6-22); Blood Urea Nitrogen 38 mg/dL (9-20); Calcium 9.6 mg/dL (8.4-10.2); Carbon Dioxide 25 mmol/L (22-32); Chloride 103 mmol/L (98-107); Estimated Glomerular Filt Rate 42 mL/min (>60); Glucose 98 mg/dL (80-110); HEMOLYSIS < 15 (0-50); Potassium 4.9 mmol/L (3.4-5.1); Sodium 138 mmol/L (137-145)
[2023-02-08 11:47] LABS: Tacrolimus 5.4
== END ==
PROVIDERS: PCP Internal Medicine; Referring Provider Internal Medicine Advanced Heart Failure and Transplant Cardiology; Visit Provider Internal Medicine Advanced Heart Failure and Transplant Cardiology
DX: Z94.1 Heart transplant status (principal)
CPT/HCPCS: 36415; 80048; 80197

== ENCOUNTER 2024-04-13 15:12 | Emergency (ER) | payer OTHER, MEDICAID, SELFPAY ==
[2024-04-13] VITALS (75 sets, daily range): BP systolic 115–171; BP diastolic 70–119; PULSE 121–143; RESP 15–36; TEMP 36.6; O2SAT 93–98; BMI 36.0
--- NOTE | 2024-04-13 15:20 | DI.RAD.S_ITS ---
PROCEDURE: XR CHEST 1V INDICATIONS: chest pain TECHNIQUE: One view of the chest was acquired. COMPARISON: [facility], CR, XR CHEST 1 VIEW, 12/15/2021, 12:20. FINDINGS: Surgical changes and devices: Sternotomy wires are seen. Lungs and pleura: On this semiupright portable chest examination, no large pneumothorax or large pleural effusions are seen. No focal infiltrates are seen. Low lung volumes are noted. This causes a crowded appearance to the lung markings and limits evaluation. Mediastinum: Mediastinal contours appear normal. Heart size is moderately enlarged. Bones and chest wall: No suspicious bony lesions. Age-appropriate bony degenerative changes are seen. Overlying soft tissues appear unremarkable. IMPRESSION: Moderate cardiomegaly. Low lung volumes. Postoperative and degenerative changes are seen. Dictated by: Gregory Jarrett M.D. on 04/13/2024 at 14:58 Approved by: Gregory Jarrett M.D. on 04/13/2024 at 14:59
--- NOTE | 2024-04-13 15:26 | EKG_ITS ---
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
[2024-04-13 15:40] LABS: Basophils Absolute Auto 100 /uL (0-100); Basophils Percent Auto 0.6 % (0-2); Eosinophils Absolute Auto 300 /uL (0-450); Eosinophils Percent Auto 3.5 % (2-4); Lymphocytes Absolute Auto 2900 /uL (1100-4500); Lymphocytes Percent Auto 29.8 % (25-40); Mean Corpuscular Hemoglobin 20.7 PG (26-34); Mean Corpuscular Volume 66.6 fL (80-100); Monocytes Absolute Auto 600 /uL (0-900); Monocytes Percent Auto 6.2 % (3-14); Neutrophils Absolute Auto 5900 /uL (1500-7000); Neutrophils Percent Auto 59.9 % (50-75); Platelet Count 201 X10^3/uL (150-400); Red Blood Cell Count 6.76 X10^6/uL (4.5-5.9); Red Cell Distribution Width 19.1 % (11.6-14.8); White Blood Cell Count 9.8 X10^3/uL (4.5-11.0)
--- NOTE | 2024-04-13 15:43 | PC.NURSE ---
hx of heart transplant 2015
[2024-04-13 15:44] LABS: Prothrombin Time 10.9 SECONDS (9.4-12.5)
[2024-04-13 15:47] LABS: PTT Partial Thromboplastin Tim 36 SECONDS (25.1-36.5)
[2024-04-13] MEDS: ASPIRIN 81 MG CHEW TAB 324 MG PO (15:47)
[2024-04-13 15:49] LABS: Alanine Aminotransferase 30 IU/L (<50); Albumin 4.4 g/dL (3.5-5.0); Albumin Globulin Ratio 1.5 (1.0-2.8); Alkaline Phosphatase 69 U/L (38-126); Aspartate Aminotransferase 36 IU/L (17-59); Bilirubin Total 0.8 mg/dL (0.2-1.3); Blood Urea Nitrogen 49 mg/dL (9-20); Calcium 9.5 mg/dL (8.4-10.2); Carbon Dioxide 29 mmol/L (22-32); Chloride 103 mmol/L (98-107); Creatine Kinase 46 U/L (55-170); Estimated Glomerular Filt Rate 33 mL/min (>60); Globulin 2.9 g/dL (1.7-4.1); Glucose 94 mg/dL (80-110); HEMOLYSIS < 15 (0-50); Lipase 50 U/L (23-300); Potassium 4.8 mmol/L (3.4-5.1); Sodium 138 mmol/L (137-145); Total Protein 7.3 g/dL (6.3-8.2)
[2024-04-13 15:56] LABS: Add Manual Diff / Slide Review SLIDE REVIEW
[2024-04-13 16:01] LABS: NT-proBNP (BNP-Adult 18+) 4720 pg/mL (<125); Troponin I < 0.012 ng/mL (0.01-0.034)
--- NOTE | 2024-04-13 16:05 | ED_ITS ---
HPI - Arrhythmia/Palpitations <Ed Jackson DO - Last Filed: 04/13/24 16:38> General Chief Complaint: Arrhythmia/Palpitations Stated Complaint: sent by [facility], heart rate 135bpm Time Seen by Provider: 04/13/24 16:03 Source: patient Mode of arrival: Ambulatory History of Present Illness HPI narrative: patient is a 68-year-old male with a history of cardiac transplant in 2014 on tacrolimus. States he does take diltiazem normally. Comes into the ED complaining of palpitations lightheadedness started around noon, states that this has since resolved however patient did go to urgent care and noted to be tachycardic therefore patient instructed to come into the ED for further evaluation and treatment. He states that he did have cardiac transplant performed due to history of aortic bicuspid valve. Has been compliant with all of his medications, stating that he is still having intermittent palpitations but no actual chest pain shortness of breath. Does follow with Dr. Ed Carney ( Cardiology at [facility]). currently not complaining of any other symptoms at this time he is concerned that he is in the process of having a rejection of his transplant but has been compliant with all of his medications as prescribed. He states that he did have a echo and stress test that were normal in November of 2023. Related Data Home Medications Medication Instructions Recorded Confirmed dapsone 100 mg tablet 50 mg PO DAILY 03/14/19 12/18/21 diltiazem HCl 30 mg tablet 15 mg PO BID 03/14/19 12/18/21 mycophenolate mofetil 250 mg 250 mg PO BID 03/14/19 12/18/21 capsule tacrolimus 1 mg capsule, 2 mg PO Q12H 03/14/19 12/18/21 immediate-release allopurinol 100 mg tablet 100 mg PO DAILY 03/15/19 12/18/21 folic acid 1 mg tablet 1 mg PO DAILY 03/15/19 12/18/21 prednisone 5 mg tablet 5 mg PO DAILY 03/15/19 12/18/21 Previous Rx's Medication Instructions Recorded ganciclovir 0.15 % eye gel 1 drp EYE-RIGHT TID #5 grams 12/18/21 Allergies Allergy/AdvReac Type Severity Reaction Status Date / Time No Known Drug Allergies Allergy Verified 04/13/24 15:20 Review of Systems <DO Hannah Garcia Last Filed: 04/13/24 16:38> Review of Systems Narrative: General: Denies fever, chills, weight loss HEENT: Denies headache, eye drainage, eye irritation, head trauma, sore throat, voice change Cardiovascular: positive palpitations, tachycardia denies chest pain, shortness of breath Respiratory: Denies any shortness of breath, cough, wheeze, stridor GI/: Denies any abdominal pain, nausea, vomiting, diarrhea, bright red blood per rectum, melanotic stools, urinary frequency, urinary retention, dysuria, hematuria MSK: Denies any joint pain, muscle pains, swelling Skin: Denies any rashes, lesions, discoloration Neuro: Denies any headache, lightheadedness, dizziness, fainting, weakness Psych: Denies SI/HI Patient History <Ed Jackson DO - Last Filed: 04/13/24 16:38> Medical History (Updated 04/13/24 @ 20:09 by Shanon Coombs MD) Unspecified transient cerebral ischemia (08/28/14) ACC/AHA stage D heart failure (08/29/14) Severe aortic stenosis Nonischemic cardiomyopathy Microcytic anemia HTN (hypertension) CKD (chronic kidney disease), stage III Heart transplant recipient (12/04/14) Surgical History (Updated 04/13/24 @ 20:09 by Shanon Coombs MD) History of left ventricular assist device (LVAD) (08/29/14) History of right ventricular assist device (RVAD) (08/29/14) S/P TAVR (transcatheter aortic valve replacement) (08/21/14) Social History household members: spouse and children Smoking Status: Never smoker Smoking Status: Never smoker alcohol intake frequency: 0-2 drinks per day Substance Use Type: does not use Exam <Ed Jackson DO - Last Filed: 04/13/24 16:38> Narrative Exam Narrative: General: Cooperative, comfortable, well-developed, not in acute distress HEENT: Normocephalic, atraumatic, PERRLA, normal sclera, eyelids normal, Neck: Active full range of motion, atraumatic Chest: Normal to inspection, negative crepitus, no overlying erythema ecchymosis Respiratory: Normal respiratory effort, not in acute respiratory distress, clear to auscultation bilaterally negative cough, wheeze, tachypnea, rhonchi, rales Cardiology: tachycardic negative gallop, murmur, rubs GI/: Normal to inspection, soft, nonrigid, no tenderness to palpation, exam deferred MSK: Full range of active range of motion of all 4 extremities, atraumatic Skin: No rashes lesions noted Neuro: Alert awake oriented x3, moves all 4 extremities spontaneously, cranial nerves intact, able to answer all questions appropriately follows commands appropriately Psych: Cooperative, negative suicidal or homicidal ideations Initial Vital Signs Initial Vital Signs: Vital Signs Temperature 98 F 04/13/24 15:15 Pulse Rate 135 H 04/13/24 15:15 Respiratory Rate 22 04/13/24 15:15 Blood Pressure 160/103 H 04/13/24 15:15 Pulse Oximetry 98 04/13/24 15:15 Oxygen Delivery Method Room Air 04/13/24 15:15 <Shanon Coombs MD - Last Filed: 04/13/24 23:58> Initial Vital Signs Initial Vital Signs: Vital Signs Temperature 98 F 04/13/24 15:15 Pulse Rate 135 H 04/13/24 15:15 Respiratory Rate 22 04/13/24 15:15 Blood Pressure 160/103 H 04/13/24 15:15 Pulse Oximetry 98 04/13/24 15:15 Oxygen Delivery Method Room Air 04/13/24 15:15 Course <Ed Jackson DO - Last Filed: 04/13/24 16:38> Orders Ordered: ED Orders 04/13/24 15:20 XR chest 1V Stat EKG-12 Lead Stat 04/13/24 15:27 Complete Blood Count AUTO DIFF Stat Comprehensive Metabolic Panel Stat Lipase Stat Magnesium Stat NT-proBNP (BNP-Adult 18+) Stat PTT Partial Thromboplastin [place] Stat Prothrombin Time INR Stat Troponin & CK Cardiac Panel Stat 04/13/24 19:12 Urine Microscopic Stat Discontinued Medications Aspirin (Aspirin 81 Mg Chew Tab) 324 mg PO NOW ONE Stop: 04/13/24 15:21 Last Admin: 04/13/24 15:47 Dose: 324 mg Documented By: CHRISS Magnesium Sulfate (Magnesium Sulfate) 2 gm in 50 mls @ 150 mls/hr IV NOW ONE Stop: 04/13/24 16:22 Last Infusion: 04/13/24 16:43 Dose: Infused Documented By: CHRISS Co-signed By: KAMRYN Admin: 04/13/24 16:23 Dose: 150 mls/hr Documented By: CHRISS Co-signed By: KAMRYN Metoprolol Tartrate (Metoprolol Tartrate 5 Mg/5 Ml Inj) 5 mg IV Q5M AGUSTIN Stop: 04/13/24 18:26 Last Admin: 04/13/24 18:34 Dose: Not Given Documented By: Admin: 04/13/24 18:29 Dose: 5 mg Documented By: Admin: 04/13/24 18:24 Dose: 5 mg Documented By: CHRISS Vital Signs Vital signs: Vital Signs - 8 hr 04/13/24 16:00 04/13/24 16:00 04/13/24 16:05 Pulse Rate 143 H 138 H Respiratory Rate 16 Blood Pressure 136/96 H Pulse Oximetry 95 95 Oxygen Delivery Method Room Air 04/13/24 16:10 04/13/24 16:11 04/13/24 16:11 Pulse Rate 137 H 137 H Respiratory Rate 19 16 Blood Pressure 161/108 H Pulse Oximetry 96 97 Oxygen Delivery Method 04/13/24 16:15 04/13/24 16:20 04/13/24 16:20 Pulse Rate 137 H 136 H Respiratory Rate 18 17 Blood Pressure 166/92 H Pulse Oximetry 96 96 Oxygen Delivery Method Room Air 04/13/24 16:25 04/13/24 16:30 04/13/24 16:30 Pulse Rate 137 H 137 H Respiratory Rate 15 19 Blood Pressure 152/96 H Pulse Oximetry 96 Oxygen Delivery Method 04/13/24 16:35 04/13/24 16:40 04/13/24 16:40 Pulse Rate 135 H 134 H Respiratory Rate 20 20 Blood Pressure 146/92 H Pulse Oximetry 96 95 Oxygen Delivery Method 04/13/24 16:45 04/13/24 16:50 04/13/24 16:50 Pulse Rate 134 H 135 H Respiratory Rate 25 H Blood Pressure 152/83 H Pulse Oximetry 94 Oxygen Delivery Method Room Air 04/13/24 16:55 04/13/24 17:00 04/13/24 17:00 Pulse Rate 135 H 136 H Respiratory Rate 18 18 Blood Pressure 155/84 H Pulse Oximetry 93 94 Oxygen Delivery Method 04/13/24 17:05 04/13/24 17:10 04/13/24 17:10 Pulse Rate 136 H 137 H Respiratory Rate 22 18 Blood Pressure 145/77 H Pulse Oximetry 95 94 Oxygen Delivery Method 04/13/24 17:15 04/13/24 17:20 04/13/24 17:20 Pulse Rate 137 H 137 H Respiratory Rate 16 20 Blood Pressure 129/74 Pulse Oximetry 94 Oxygen Delivery Method 04/13/24 17:25 04/13/24 17:30 04/13/24 17:31 Pulse Rate 135 H 136 H Respiratory Rate 15 17 Blood Pressure 145/82 H Pulse Oximetry Oxygen Delivery Method 04/13/24 17:31 04/13/24 17:35 04/13/24 17:40 Pulse Rate 136 H 136 H Respiratory Rate 17 16 Blood Pressure 124/77 Pulse Oximetry 95 93 Oxygen Delivery Method Room Air 04/13/24 17:40 04/13/24 17:45 04/13/24 17:50 Pulse Rate 135 H 135 H Respiratory Rate 21 15 Blood Pressure 129/89 Pulse Oximetry 94 Oxygen Delivery Method Room Air 04/13/24 17:50 04/13/24 17:55 04/13/24 18:00 Pulse Rate 135 H 135 H Respiratory Rate 20 23 Blood Pressure 131/87 Pulse Oximetry 93 94 Oxygen Delivery Method 04/13/24 18:00 04/13/24 18:05 04/13/24 18:10 Pulse Rate 135 H 136 H Respiratory Rate 22 21 Blood Pressure 124/89 Pulse Oximetry 94 94 Oxygen Delivery Method 04/13/24 18:10 04/13/24 18:15 04/13/24 18:20 Pulse Rate 135 H 135 H Respiratory Rate 17 26 H Blood Pressure 164/99 H Pulse Oximetry 94 94 Oxygen Delivery Method 04/13/24 18:20 04/13/24 18:25 04/13/24 18:30 Pulse Rate 133 H 134 H Respiratory Rate 28 H 21 Blood Pressure 139/96 H Pulse Oximetry 96 95 Oxygen Delivery Method 04/13/24 18:30 04/13/24 18:35 04/13/24 18:40 Pulse Rate 133 H 130 H Respiratory Rate 22 25 H Blood Pressure 141/82 H Pulse Oximetry 95 96 Oxygen Delivery Method 04/13/24 18:40 04/13/24 18:45 04/13/24 18:50 Pulse Rate 130 H 130 H 131 H Respiratory Rate 26 H 20 20 Blood Pressure Pulse Oximetry 95 95 95 Oxygen Delivery Method 04/13/24 18:50 04/13/24 18:55 04/13/24 19:00 Pulse Rate 126 H 132 H Respiratory Rate 24 24 Blood Pressure 126/92 H Pulse Oximetry 94 95 Oxygen Delivery Method 04/13/24 19:01 04/13/24 19:01 04/13/24 19:05 Pulse Rate 133 H 132 H Respiratory Rate 19 28 H Blood Pressure 115/91 H Pulse Oximetry 94 96 Oxygen Delivery Method 04/13/24 19:10 04/13/24 19:11 04/13/24 19:11 Pulse Rate 131 H 130 H Respiratory Rate 29 H 30 H Blood Pressure 155/94 H Pulse Oximetry 95 95 Oxygen Delivery Method 04/13/24 19:15 04/13/24 19:20 04/13/24 19:21 Pulse Rate 134 H 128 H Respiratory Rate 22 18 Blood Pressure 132/92 H Pulse Oximetry 95 94 Oxygen Delivery Method 04/13/24 19:21 04/13/24 19:25 04/13/24 19:42 Pulse Rate 131 H 127 H 136 H Respiratory Rate 22 24 16 Blood Pressure Pulse Oximetry 94 95 Oxygen Delivery Method Room Air Room Air 04/13/24 19:44 04/13/24 19:44 04/13/24 19:45 Pulse Rate 134 H 135 H Respiratory Rate 19 16 Blood Pressure 131/93 H Pulse Oximetry 94 95 Oxygen Delivery Method 04/13/24 19:50 04/13/24 19:50 04/13/24 19:55 Pulse Rate 134 H 130 H Respiratory Rate 27 H Blood Pressure 131/81 Pulse Oximetry 94 93 Oxygen Delivery Method 04/13/24 20:00 04/13/24 20:00 04/13/24 20:05 Pulse Rate 127 H 125 H Respiratory Rate 22 24 Blood Pressure 126/70 Pulse Oximetry 94 94 Oxygen Delivery Method 04/13/24 20:10 04/13/24 20:11 04/13/24 20:11 Pulse Rate 121 H 130 H Respiratory Rate Blood Pressure 136/78 Pulse Oximetry 93 94 Oxygen Delivery Method Room Air 04/13/24 20:15 04/13/24 20:20 04/13/24 20:25 Pulse Rate 134 H 134 H 130 H Respiratory Rate 20 24 Blood Pressure Pulse Oximetry 94 94 94 Oxygen Delivery Method Room Air 04/13/24 20:30 04/13/24 20:30 04/13/24 20:35 Pulse Rate 127 H 136 H Respiratory Rate 20 36 H Blood Pressure 130/86 Pulse Oximetry 94 Oxygen Delivery Method 04/13/24 20:40 Pulse Rate 132 H Respiratory Rate 26 H Blood Pressure Pulse Oximetry 95 Oxygen Delivery Method <Shanon Coombs MD - Last Filed: 04/13/24 23:58> Orders Ordered: ED Orders 04/13/24 15:20 XR chest 1V Stat EKG-12 Lead Stat 04/13/24 15:27 Complete Blood Count AUTO DIFF Stat Comprehensive Metabolic Panel Stat Lipase Stat Magnesium Stat NT-proBNP (BNP-Adult 18+) Stat PTT Partial Thromboplastin [place] Stat Prothrombin Time INR Stat Troponin & CK Cardiac Panel Stat 04/13/24 19:12 Urine Microscopic Stat Discontinued Medications Aspirin (Aspirin 81 Mg Chew Tab) 324 mg PO NOW ONE Stop: 04/13/24 15:21 Last Admin: 04/13/24 15:47 Dose: 324 mg Documented By: CHRISS Magnesium Sulfate (Magnesium Sulfate) 2 gm in 50 mls @ 150 mls/hr IV NOW ONE Stop: 04/13/24 16:22 Last Infusion: 04/13/24 16:43 Dose: Infused Documented By: CHRISS Co-signed By: KAMRYN Admin: 04/13/24 16:23 Dose: 150 mls/hr Documented By: CHRISS Co-signed By: KAMRYN Metoprolol Tartrate (Metoprolol Tartrate 5 Mg/5 Ml Inj) 5 mg IV Q5M AGUSTIN Stop: 04/13/24 18:26 Last Admin: 04/13/24 18:34 Dose: Not Given Documented By: Admin: 04/13/24 18:29 Dose: 5 mg Documented By: Admin: 04/13/24 18:24 Dose: 5 mg Documented By: CHRISS Vital Signs Vital signs: Vital Signs - 8 hr 04/13/24 16:00 04/13/24 16:00 04/13/24 16:05 Pulse Rate 143 H 138 H Respiratory Rate 16 Blood Pressure 136/96 H Pulse Oximetry 95 95 Oxygen Delivery Method Room Air 04/13/24 16:10 04/13/24 16:11 04/13/24 16:11 Pulse Rate 137 H 137 H Respiratory Rate 19 16 Blood Pressure 161/108 H Pulse Oximetry 96 97 Oxygen Delivery Method 04/13/24 16:15 04/13/24 16:20 04/13/24 16:20 Pulse Rate 137 H 136 H Respiratory Rate 18 17 Blood Pressure 166/92 H Pulse Oximetry 96 96 Oxygen Delivery Method Room Air 04/13/24 16:25 04/13/24 16:30 04/13/24 16:30 Pulse Rate 137 H 137 H Respiratory Rate 15 19 Blood Pressure 152/96 H Pulse Oximetry 96 Oxygen Delivery Method 04/13/24 16:35 04/13/24 16:40 04/13/24 16:40 Pulse Rate 135 H 134 H Respiratory Rate 20 20 Blood Pressure 146/92 H Pulse Oximetry 96 95 Oxygen Delivery Method 04/13/24 16:45 04/13/24 16:50 04/13/24 16:50 Pulse Rate 134 H 135 H Respiratory Rate 25 H Blood Pressure 152/83 H Pulse Oximetry 94 Oxygen Delivery Method Room Air 04/13/24 16:55 04/13/24 17:00 04/13/24 17:00 Pulse Rate 135 H 136 H Respiratory Rate 18 18 Blood Pressure 155/84 H Pulse Oximetry 93 94 Oxygen Delivery Method 04/13/24 17:05 04/13/24 17:10 04/13/24 17:10 Pulse Rate 136 H 137 H Respiratory Rate 22 18 Blood Pressure 145/77 H Pulse Oximetry 95 94 Oxygen Delivery Method 04/13/24 17:15 04/13/24 17:20 04/13/24 17:20 Pulse Rate 137 H 137 H Respiratory Rate 16 20 Blood Pressure 129/74 Pulse Oximetry 94 Oxygen Delivery Method 04/13/24 17:25 04/13/24 17:30 04/13/24 17:31 Pulse Rate 135 H 136 H Respiratory Rate 15 17 Blood Pressure 145/82 H Pulse Oximetry Oxygen Delivery Method 04/13/24 17:31 04/13/24 17:35 04/13/24 17:40 Pulse Rate 136 H 136 H Respiratory Rate 17 16 Blood Pressure 124/77 Pulse Oximetry 95 93 Oxygen Delivery Method Room Air 04/13/24 17:40 04/13/24 17:45 04/13/24 17:50 Pulse Rate 135 H 135 H Respiratory Rate 21 15 Blood Pressure 129/89 Pulse Oximetry 94 Oxygen Delivery Method Room Air 04/13/24 17:50 04/13/24 17:55 04/13/24 18:00 Pulse Rate 135 H 135 H Respiratory Rate 20 23 Blood Pressure 131/87 Pulse Oximetry 93 94 Oxygen Delivery Method 04/13/24 18:00 04/13/24 18:05 04/13/24 18:10 Pulse Rate 135 H 136 H Respiratory Rate 22 21 Blood Pressure 124/89 Pulse Oximetry 94 94 Oxygen Delivery Method 04/13/24 18:10 04/13/24 18:15 04/13/24 18:20 Pulse Rate 135 H 135 H Respiratory Rate 17 26 H Blood Pressure 164/99 H Pulse Oximetry 94 94 Oxygen Delivery Method 04/13/24 18:20 04/13/24 18:25 04/13/24 18:30 Pulse Rate 133 H 134 H Respiratory Rate 28 H 21 Blood Pressure 139/96 H Pulse Oximetry 96 95 Oxygen Delivery Method 04/13/24 18:30 04/13/24 18:35 04/13/24 18:40 Pulse Rate 133 H 130 H Respiratory Rate 22 25 H Blood Pressure 141/82 H Pulse Oximetry 95 96 Oxygen Delivery Method 04/13/24 18:40 04/13/24 18:45 04/13/24 18:50 Pulse Rate 130 H 130 H 131 H Respiratory Rate 26 H 20 20 Blood Pressure Pulse Oximetry 95 95 95 Oxygen Delivery Method 04/13/24 18:50 04/13/24 18:55 04/13/24 19:00 Pulse Rate 126 H 132 H Respiratory Rate 24 24 Blood Pressure 126/92 H Pulse Oximetry 94 95 Oxygen Delivery Method 04/13/24 19:01 04/13/24 19:01 04/13/24 19:05 Pulse Rate 133 H 132 H Respiratory Rate 19 28 H Blood Pressure 115/91 H Pulse Oximetry 94 96 Oxygen Delivery Method 04/13/24 19:10 04/13/24 19:11 04/13/24 19:11 Pulse Rate 131 H 130 H Respiratory Rate 29 H 30 H Blood Pressure 155/94 H Pulse Oximetry 95 95 Oxygen Delivery Method 04/13/24 19:15 04/13/24 19:20 04/13/24 19:21 Pulse Rate 134 H 128 H Respiratory Rate 22 18 Blood Pressure 132/92 H Pulse Oximetry 95 94 Oxygen Delivery Method 04/13/24 19:21 04/13/24 19:25 04/13/24 19:42 Pulse Rate 131 H 127 H 136 H Respiratory Rate 22 24 16 Blood Pressure Pulse Oximetry 94 95 Oxygen Delivery Method Room Air Room Air 04/13/24 19:44 04/13/24 19:44 04/13/24 19:45 Pulse Rate 134 H 135 H Respiratory Rate 19 16 Blood Pressure 131/93 H Pulse Oximetry 94 95 Oxygen Delivery Method 04/13/24 19:50 04/13/24 19:50 04/13/24 19:55 Pulse Rate 134 H 130 H Respiratory Rate 27 H Blood Pressure 131/81 Pulse Oximetry 94 93 Oxygen Delivery Method 04/13/24 20:00 04/13/24 20:00 04/13/24 20:05 Pulse Rate 127 H 125 H Respiratory Rate 22 24 Blood Pressure 126/70 Pulse Oximetry 94 94 Oxygen Delivery Method 04/13/24 20:10 04/13/24 20:11 04/13/24 20:11 Pulse Rate 121 H 130 H Respiratory Rate Blood Pressure 136/78 Pulse Oximetry 93 94 Oxygen Delivery Method Room Air 04/13/24 20:15 04/13/24 20:20 04/13/24 20:25 Pulse Rate 134 H 134 H 130 H Respiratory Rate 20 24 Blood Pressure Pulse Oximetry 94 94 94 Oxygen Delivery Method Room Air 04/13/24 20:30 04/13/24 20:30 04/13/24 20:35 Pulse Rate 127 H 136 H Respiratory Rate 20 36 H Blood Pressure 130/86 Pulse Oximetry 94 Oxygen Delivery Method 04/13/24 20:40 Pulse Rate 132 H Respiratory Rate 26 H Blood Pressure Pulse Oximetry 95 Oxygen Delivery Method MDM - Arrhythmia/Palpitations <Ed Jackson DO - Last Filed: 04/13/24 16:38> Differential Diagnosis Differential diagnosis: Likely palpitations, artial fibrillation, artial flutter, supraventricular tachycardia and other ( ACS, CHF) Lab Data 04/13/24 15:27 04/13/24 15:27 Labs: Lab Results 04/13/24 04/13/24 Range/Units 15:27 19:12 WBC 9.8 (4.5-11.0) X10^3/uL RBC 6.76 H (4.5-5.9) X10^6/uL Hgb 14.0 (13.5-17.5) g/dL Hct 45.0 (41-53) % MCV 66.6 L (80-100) fL MCH 20.7 L (26-34) PG MCHC 31.0 (30-36) % RDW 19.1 H (11.6-14.8) % Plt Count 201 (150-400) X10^3/uL Neut % (Auto) 59.9 (50-75) % Lymph % (Auto) 29.8 (25-40) % [place] % (Auto) 6.2 (3-14) % Eos % (Auto) 3.5 (2-4) % Baso % (Auto) 0.6 (0-2) % Neut # (Auto) 5900 (9352-1518) /uL Lymph # (Auto) 2900 (7604-4724) /uL [place] # (Auto) 600 (0-900) /uL Eos # (Auto) 300 (0-450) /uL Baso # (Auto) 100 (0-100) /uL RBC Morphology See below Hypochromasia 1+ H Anisocytosis 1+ H Microcytosis 2+ H Target Cells 2+ H Stomatocytes 1+ H PT 10.9 (9.4-12.5) SECONDS INR 1.0 (0.9-1.3) APTT 36 (25.1-36.5) SECONDS Sodium 138 (137-145) mmol/L Potassium 4.8 (3.4-5.1) mmol/L Chloride 103 (98-107) mmol/L Carbon Dioxide 29 (22-32) mmol/L BUN 49 H (9-20) mg/dL Creatinine 2.13 H (0.66-1.25) mg/dL Estimated GFR 33 L (>60) mL/min BUN/Creatinine Ratio 23.0 H (6-22) Glucose 94 (80-110) mg/dL Calcium 9.5 (8.4-10.2) mg/dL Magnesium 2.0 (1.6-2.3) mg/dL Total Bilirubin 0.8 (0.2-1.3) mg/dL AST 36 (17-59) IU/L ALT 30 (<50) IU/L Alkaline Phosphatase 69 (38-126) U/L Total Creatine Kinase 46 L (55-170) U/L Troponin I < 0.012 (0.01-0.034) ng/mL NT-Pro-B Natriuret Pep 4754 H (<125) pg/mL Total Protein 7.3 (6.3-8.2) g/dL Albumin 4.4 (3.5-5.0) g/dL Globulin 2.9 (1.7-4.1) g/dL Albumin/Globulin Ratio 1.5 (1.0-2.8) Lipase 50 (23-300) U/L Urine RBC 0-1/hpf (0-5/HPF) Urine WBC None seen (0-5/HPF) Ur Squamous Epith Cells None seen (0-5/HPF) Calcium Oxalate Crystal Few H Urine Bacteria Moderate (10-30) H (None) Hyaline Casts 0-1/lpf (None) Other Casts 1 Urine Mucus 2+ H (Negative) Ur Culture Indicated? Cult not indicated Vol Urine Centrifuged 10ml (spun) Urine Dip Bedside Urine Glucose Negative Bedside Urine Bilirubin - Negative Bedside Urine Ketone +/- 5 Urine Specific [place] 1.025 Bedside Urine Occult Blood + Bedside Urine pH 5.0 Bedside Urine Protein ++ 100 Bedside Urine Urobilinogen - Negative Bedside Urine Nitrite - Negative Bedside Urine Leukocytes - Negative Esterase Imaging Data Chest x-ray: Radiologist's Impresson: [address] [address] XRay Report Signed Patient: Dann Hernandez MR#: [id number] : 1955 Acct:[id number] Age/Sex: 68 / M Date of Service: 04/13/24 Loc: ED Accession Number: [id number] Procedure: XR chest 1V Ordering Provider: Ed Jackson D.O. PROCEDURE: XR CHEST 1V INDICATIONS: chest pain TECHNIQUE: One view of the chest was acquired. COMPARISON: [facility], , XR CHEST 1 VIEW, 12/15/2021, 12:20. FINDINGS: Surgical changes and devices: Sternotomy wires are seen. Lungs and pleura: On this semiupright portable chest examination, no large pneumothorax or large pleural effusions are seen. No focal infiltrates are seen. Low lung volumes are noted. This causes a crowded appearance to the lung markings and limits evaluation. Mediastinum: Mediastinal contours appear normal. Heart size is moderately enlarged. Bones and chest wall: No suspicious bony lesions. Age-appropriate bony degenerative changes are seen. Overlying soft tissues appear unremarkable. IMPRESSION: Moderate cardiomegaly. Low lung volumes. Postoperative and degenerative changes are seen. ECG Data Interpretation: Initial EKG interpreted ED physician sinus tachycardia at 136 beats per minute, right bundle branch block noted, QTC 448, normal axis, nonspecific ST changes, no STEMI MDM Narrative Medical decision making narrative: patient is a 68-year-old male with a history of bike cuspid aortic valve requiring transplant in 2014 by [facility], presents to the emergency department for tachycardic, palpitation. States that this started spontaneously last night and into today, at time of evaluation is not having any chest pain shortness of breath but is still having intermittent palpitations. He states that he is worried that he is rejecting his heart transplant. Does follow with Dr. Ed Carney ( cardiology) at [facility], did have a stress test and echo performed in November of 2023 which were normal. <Shanon Coombs MD - Last Filed: 04/13/24 23:58> Lab Data Labs: Lab Results 04/13/24 04/13/24 Range/Units 15:27 19:12 WBC 9.8 (4.5-11.0) X10^3/uL RBC 6.76 H (4.5-5.9) X10^6/uL Hgb 14.0 (13.5-17.5) g/dL Hct 45.0 (41-53) % MCV 66.6 L (80-100) fL MCH 20.7 L (26-34) PG MCHC 31.0 (30-36) % RDW 19.1 H (11.6-14.8) % Plt Count 201 (150-400) X10^3/uL Neut % (Auto) 59.9 (50-75) % Lymph % (Auto) 29.8 (25-40) % [place] % (Auto) 6.2 (3-14) % Eos % (Auto) 3.5 (2-4) % Baso % (Auto) 0.6 (0-2) % Neut # (Auto) 5900 (6720-4453) /uL Lymph # (Auto) 2900 (2113-5674) /uL [place] # (Auto) 600 (0-900) /uL Eos # (Auto) 300 (0-450) /uL Baso # (Auto) 100 (0-100) /uL RBC Morphology See below Hypochromasia 1+ H Anisocytosis 1+ H Microcytosis 2+ H Target Cells 2+ H Stomatocytes 1+ H PT 10.9 (9.4-12.5) SECONDS INR 1.0 (0.9-1.3) APTT 36 (25.1-36.5) SECONDS Sodium 138 (137-145) mmol/L Potassium 4.8 (3.4-5.1) mmol/L Chloride 103 (98-107) mmol/L Carbon Dioxide 29 (22-32) mmol/L BUN 49 H (9-20) mg/dL Creatinine 2.13 H (0.66-1.25) mg/dL Estimated GFR 33 L (>60) mL/min BUN/Creatinine Ratio 23.0 H (6-22) Glucose 94 (80-110) mg/dL Calcium 9.5 (8.4-10.2) mg/dL Magnesium 2.0 (1.6-2.3) mg/dL Total Bilirubin 0.8 (0.2-1.3) mg/dL AST 36 (17-59) IU/L ALT 30 (<50) IU/L Alkaline Phosphatase 69 (38-126) U/L Total Creatine Kinase 46 L (55-170) U/L Troponin I < 0.012 (0.01-0.034) ng/mL NT-Pro-B Natriuret Pep 4720 H (<125) pg/mL Total Protein 7.3 (6.3-8.2) g/dL Albumin 4.4 (3.5-5.0) g/dL Globulin 2.9 (1.7-4.1) g/dL Albumin/Globulin Ratio 1.5 (1.0-2.8) Lipase 50 (23-300) U/L Urine RBC 0-1/hpf (0-5/HPF) Urine WBC None seen (0-5/HPF) Ur Squamous Epith Cells None seen (0-5/HPF) Calcium Oxalate Crystal Few H Urine Bacteria Moderate (10-30) H (None) Hyaline Casts 0-1/lpf (None) Other Casts 1 Urine Mucus 2+ H (Negative) Ur Culture Indicated? Cult not indicated Vol Urine Centrifuged 10ml (spun) Urine Dip Bedside Urine Glucose Negative Bedside Urine Bilirubin - Negative Bedside Urine Ketone +/- 5 Urine Specific [place] 1.025 Bedside Urine Occult Blood + Bedside Urine pH 5.0 Bedside Urine Protein ++ 100 Bedside Urine Urobilinogen - Negative Bedside Urine Nitrite - Negative Bedside Urine Leukocytes - Negative Esterase MDM Narrative Medical decision making narrative: patient is a 68-year-old male with a history of bike cuspid aortic valve requiring transplant in 2014 by [facility], presents to the emergency department for tachycardic, palpitation. States that this started spontaneously last night and into today, at time of evaluation is not having any chest pain shortness of breath but is still having intermittent palpitations. He states that he is worried that he is rejecting his heart transplant. Does follow with Dr. Ed Carney ( cardiology) at [facility], did have a stress test and echo performed in November of 2023 which were normal. 1899 -Dr. Coombs: Care of patient is signed out to me by daytime physician. Independent review of patient and chart performed by myself. Patient continues to be in sinus tachycardia despite administration of IV metoprolol, persistently tachycardic at a rate of 125-135 beats per minute. Chest x-ray shows cardiomegaly without signs of congestion. Discussed case with Dr. Rdz of Cardiology, who recommends transfer to cardiac floor. Patient in agreement with transplant at this time. Patient transfered in stable condition to [facility] via ambulance service. Discharge Plan Departure Patient Disposition: Home Clinical Impression: Tachycardia, History of heart transplant Prescriptions: No Action ganciclovir 0.15 % gel 1 drp EYE-RIGHT TID Qty: 5 0RF Rx Instructions: continue 3 times a day after healing for 1 week mycophenolate mofetil 250 mg Capsule 250 mg PO BID dapsone 100 mg Tablet 50 mg PO DAILY diltiazem HCl 30 mg Tablet 15 mg PO BID tacrolimus 1 mg Capsule 2 mg PO Q12H folic acid 1 mg Tablet 1 mg PO DAILY prednisone 5 mg Tablet 5 mg PO DAILY Patient Comments: temporary with the allopurinol for gout; should be done about a week. allopurinol 100 mg Tablet 100 mg PO DAILY Referrals: Jed Vick DO [Primary Care Provider] - Stand Alone Forms: Patient Portal/API/Survey
[2024-04-13 16:20] LABS: Anisocytosis 1+; Hypochromasia 1+; Microcytosis 2+; Target Cells 2+
[2024-04-13 16:21] LABS: Stomatocytes 1+
[2024-04-13] MEDS: MAGNESIUM SULFATE 2 GM/50 ML PIGGYBACK IV (16:23)
--- NOTE | 2024-04-13 16:36 | EKG_ITS ---
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
[2024-04-13] MEDS: METOPROLOL TARTRATE 5 MG/5 ML INJ IV ×2 (18:24→18:29)
[2024-04-13 19:42] LABS: Bacteria Urine Moderate (10-30); RBC Urine 0-1/HPF (0-5/HPF); Squamous Epithelial Cell Urine None Seen (0-5/HPF); Urine Volume 10mL (spun); WBC Urine None Seen (0-5/HPF)
[2024-04-13 19:43] LABS: Hyaline Casts Urine 0-1/LPF; Mucus Urine 2+ (Negative); Other Casts Urine 1
[2024-04-13 19:44] LABS: Calcium Oxalate Crystals Urine Few; Culture Indicated Urine Cult Not Indicated
== END 2024-04-13 21:10 | disposition home or self-care (01) ==
PROVIDERS: Emergency Provider Student in an Organized Health Care Education/Training Program; PCP Internal Medicine
DX: R00.0 Tachycardia, unspecified (principal); R07.9 Chest pain, unspecified; R42 Dizziness and giddiness; Z94.1 Heart transplant status
CPT/HCPCS: 36415; 71045; 80053; 81003; 81015; 82550; 83690; 83735; 83880; 84484; 85025; 85610; 85730; 93005; 96365; 99284; J3475

== ENCOUNTER → 2024-04-23 08:06 | Outpatient (CLI) | payer OTHER, MEDICAID, SELFPAY ==
[2024-04-23 08:49] LABS: Add Manual Diff / Slide Review NO; Basophils Absolute Auto 0 /uL (0-100); Basophils Percent Auto 0.3 % (0-2); Eosinophils Absolute Auto 200 /uL (0-450); Eosinophils Percent Auto 2.5 % (2-4); Hematocrit 39.6 % (41-53); Hemoglobin 12.3 g/dL (13.5-17.5); Lymphocytes Absolute Auto 2100 /uL (1100-4500); Lymphocytes Percent Auto 22.8 % (25-40); Mean Corpuscular HGB Conc 31.1 % (30-36); Mean Corpuscular Hemoglobin 20.8 PG (26-34); Mean Corpuscular Volume 66.8 fL (80-100); Monocytes Absolute Auto 800 /uL (0-900); Monocytes Percent Auto 9.3 % (3-14); Neutrophils Absolute Auto 5900 /uL (1500-7000); Neutrophils Percent Auto 65.1 % (50-75); Platelet Count 160 X10^3/uL (150-400); Red Blood Cell Count 5.93 X10^6/uL (4.5-5.9); Red Cell Distribution Width 19.7 % (11.6-14.8)
[2024-04-23 09:00] LABS: Anisocytosis 2+; Hypochromasia 2+
[2024-04-23 09:01] LABS: Microcytosis 3+; Stomatocytes 1+
[2024-04-23 09:02] LABS: Target Cells 2+
[2024-04-23 10:17] LABS: BUN Creatinine Ratio 27.1 (6-22); Blood Urea Nitrogen 39 mg/dL (9-20); Calcium 9.1 mg/dL (8.4-10.2); Carbon Dioxide 24 mmol/L (22-32); Chloride 107 mmol/L (98-107); Estimated Glomerular Filt Rate 53 mL/min (>60); Glucose 99 mg/dL (80-110); HEMOLYSIS < 15 (0-50); Magnesium 1.7 mg/dL (1.6-2.3); Potassium 4.6 mmol/L (3.4-5.1); Sodium 138 mmol/L (137-145)
[2024-04-24 05:28] LABS: Tacrolimus 3.8 ng/mL (2.0-20.0)
== END ==
PROVIDERS: PCP Internal Medicine
DX: Z94.1 Heart transplant status (principal)
CPT/HCPCS: 36415; 80048; 80197; 83735; 85025